=== PATIENT | female | born 1985 | race African-American/Black ===

== ENCOUNTER 2017-01-02 21:07 | Emergency (ER) | payer OTHER ==
[~2017-01-02] VITALS: Ht 170.2 cm; Wt 80.7 kg
[~2017-01-02 21:07] MED LIST: ALPRAZOLAM PO; ATARAX PO; KETOPROFEN PO; LORTAB 7.5-5001 TAB PO; SKELAXIN PO; ULTRAM PO
== END 2017-01-02 21:32 | disposition left against medical advice (07) ==
LOC: CED 21:07 → CFTX 21:07
DX: Z53.21 Procedure and treatment not carried out due to patient leaving prior to being seen by health care provider (principal)